=== PATIENT | female | born 1970 | race Caucasian/White ===

== ENCOUNTER 2022-05-11 20:07 | Inpatient (IN) | payer OTHER ==
[2022-05-11 22:28] VITALS: BMI 18.1
[2022-05-11] MEDS ORDERED: POLYETHYLENE GLYCOL (HEALTHYLAX) 3350 17 GM PACKET PO PRN (23:57)
[2022-05-11] MEDS ORDERED: LOPERAMIDE HCL 2 MG CAPSULE PO PRN (23:57)
[2022-05-11] MEDS ORDERED: P-EPHED 60MG/TRIPROLIDI 2.5MG TABLET PO PRN (23:57)
[2022-05-11] MEDS ORDERED: DICYCLOMINE HCL 10 MG CAPSULE PO PRN (23:57)
[2022-05-11] MEDS ORDERED: guaiFENesin 200 MG/10 ML 10 ML UNIT-DOSE CUPS PO PRN (23:57)
[2022-05-11] MEDS ORDERED: ONDANSETRON *ODT* 4 MG TABLET SL PRN (23:57)
[2022-05-11] MEDS ORDERED: NALOXONE HCL 0.4 MG/ML VIAL IM PRN (23:57)
[2022-05-11] MEDS ORDERED: NALOXONE HCL (KLOXXADO) 8 MG SPRAY NS PRN (23:57)
[2022-05-11] MEDS ORDERED: MELATONIN 5 MG TABLETS PO PRN (23:57)
[2022-05-11] MEDS ORDERED: MAG HYDROX/AL HYDROX/SIMETH 30 ML UNIT-DOSE CUP PO PRN (23:57)
[2022-05-11] MEDS ORDERED: ACETAMINOPHEN 325 MG TABLET (FP) PO PRN (23:57)
[2022-05-11] MEDS ORDERED: BISMUTH SUBSALICYLATE 524 MG/30 ML PO PRN (23:57)
[2022-05-11] MEDS ORDERED: BENZOCAINE/MENTHOL (CHLORASEPTIC ) LOZENGE MM PRN (23:57)
[2022-05-11] MEDS ORDERED: MAGNESIUM HYDROX 2400MG/30ML ORAL SUSPENSION 30 ML CUP PO PRN (23:57)
[2022-05-11] MEDS ORDERED: IBUPROFEN 400 MG TABLET (FP) PO PRN (23:57)
[2022-05-12] MEDS ORDERED: traZODone HCL 50 MG TABLET (FP) PO ONE ×2 (00:04→01:30)
[2022-05-12] MEDS ORDERED: SERTRALINE HCL 50 MG TABLET (FP) PO ONE ×2 (00:04→01:30)
[2022-05-12] MEDS ORDERED: diazePAM 5 MG TABLET PO PRN (00:05)
[2022-05-12] MEDS ORDERED: GABAPENTIN 100 MG CAPSULE PO ONE ×2 (00:05→01:30)
[2022-05-12] MEDS: NICOTINE 10 MG CARTRIDGE (INHALER) IH PRN (01:32)
[2022-05-12] MEDS: IBUPROFEN 600 MG TABLET (FP) PO PRN ×2 (01:33→10:45)
[2022-05-12] MEDS: METHYL SALICYLATE/MENTHOL OINT 30 GM TUBE TP SCH ×3 (01:40→22:34)
[2022-05-12] MEDS: METHOCARBAMOL 500 MG TABLET PO PRN ×2 (10:45→17:34)
[2022-05-12] MEDS: PRENATAL VITAMINS W/ FOLIC ACID TABLET (FP) PO SCH (10:48)
[2022-05-12] MEDS ORDERED: methaDONE HCL 10 MG TABLET (FOR DETOX USE ONLY) PO ONE (11:09)
[2022-05-12] MEDS ORDERED: SERTRALINE HCL 50 MG TABLET (FP) PO SCH (11:15)
[2022-05-12] MEDS: diazePAM 5 MG TABLET PO SCH ×3 (11:34→22:32)
[2022-05-12] MEDS: busPIRone HCL 10 MG TABLET (FP) PO SCH ×2 (12:04→22:31)
[2022-05-12] MEDS: LURASIDONE HCL 40 MG TABLET PO SCH (12:04)
[2022-05-12 12:20] LABS: MCH 27.6 pg (25.7-33.7); MCHC 33.4 g/dl (32.0-36.0); MEAN CELL VOLUME 82.8 fl (80-96); MEAN PLT VOLUME 9.6 fl (7.5-11.1); PLATELET COUNT 170 10^3/uL (134-434); RBC 3.98 M/mm3 (3.60-5.2); RDW 14.4 % (11.6-15.6); WHITE BLOOD COUNT 3.8 K/mm3 (4.0-10.0)
[2022-05-12 12:56] LABS: BLOOD UREA NITROGEN 16.8 mg/dL (7-18); CALCIUM 8.6 mg/dL (8.5-10.1)
[2022-05-12 12:57] LABS: ALBUMIN 3.3 g/dl (3.4-5.0)
[2022-05-12 13:00] LABS: CREATININE 0.6 mg/dL (0.55-1.3)
[2022-05-12 13:01] LABS: BILIRUBIN,TOTAL 0.2 mg/dL (0.2-1)
[2022-05-12] MEDS: PANTOPRAZOLE 40 MG TABLET PO SCH (14:23)
[2022-05-12] MEDS: THIAMINE HCL 100 MG TABLET (FP) PO SCH (22:30)
[2022-05-12] MEDS: SERTRALINE HCL 50 MG TABLET (FP) PO SCH (22:31)
[2022-05-12] MEDS: traZODone HCL 100 MG TABLET (FP) PO SCH (22:31)
[2022-05-13] MEDS: diazePAM 5 MG TABLET PO SCH ×4 (05:41→22:11)
[2022-05-13] MEDS: IBUPROFEN 600 MG TABLET (FP) PO PRN (05:43)
[2022-05-13] MEDS ORDERED: SERTRALINE HCL 50 MG TABLET (FP) PO SCH (10:00)
[2022-05-13] MEDS: busPIRone HCL 10 MG TABLET (FP) PO SCH ×2 (10:18→22:11)
[2022-05-13] MEDS: PRENATAL VITAMINS W/ FOLIC ACID TABLET (FP) PO SCH (10:18)
[2022-05-13] MEDS: METHYL SALICYLATE/MENTHOL OINT 30 GM TUBE TP SCH ×2 (10:18→22:11)
[2022-05-13] MEDS: PANTOPRAZOLE 40 MG TABLET PO SCH (10:19)
[2022-05-13] MEDS: LURASIDONE HCL 40 MG TABLET PO SCH (10:19)
[2022-05-13] MEDS: ACETAMINOPHEN 325 MG TABLET (FP) PO PRN (11:28)
[2022-05-13] MEDS: MELATONIN 5 MG TABLETS PO SCH (22:10)
[2022-05-13] MEDS: SERTRALINE HCL 50 MG TABLET (FP) PO SCH (22:11)
[2022-05-13] MEDS: traZODone HCL 100 MG TABLET (FP) PO SCH (22:11)
[2022-05-13] MEDS: THIAMINE HCL 100 MG TABLET (FP) PO SCH (22:11)
[2022-05-14] MEDS: diazePAM 5 MG TABLET PO SCH ×3 (05:54→22:23)
[2022-05-14] MEDS: METHOCARBAMOL 500 MG TABLET PO PRN (05:55)
[2022-05-14] MEDS: ACETAMINOPHEN 325 MG TABLET (FP) PO PRN ×2 (05:57→22:26)
[2022-05-14] MEDS ORDERED: methaDONE HCL 10 MG TABLET (FOR DETOX USE ONLY) PO ONE (10:00)
[2022-05-14] MEDS: METHYL SALICYLATE/MENTHOL OINT 30 GM TUBE TP SCH ×2 (10:21→22:22)
[2022-05-14] MEDS: IBUPROFEN 600 MG TABLET (FP) PO PRN ×2 (10:23→18:13)
[2022-05-14] MEDS: busPIRone HCL 10 MG TABLET (FP) PO SCH ×2 (10:23→22:22)
[2022-05-14] MEDS: LURASIDONE HCL 40 MG TABLET PO SCH (10:24)
[2022-05-14] MEDS: PANTOPRAZOLE 40 MG TABLET PO SCH (10:24)
[2022-05-14] MEDS: PRENATAL VITAMINS W/ FOLIC ACID TABLET (FP) PO SCH (10:26)
[2022-05-14] MEDS: MELATONIN 5 MG TABLETS PO SCH (22:22)
[2022-05-14] MEDS: THIAMINE HCL 100 MG TABLET (FP) PO SCH (22:22)
[2022-05-14] MEDS: traZODone HCL 100 MG TABLET (FP) PO SCH (22:22)
[2022-05-14] MEDS: SERTRALINE HCL 50 MG TABLET (FP) PO SCH (22:22)
[2022-05-15] MEDS: diazePAM 5 MG TABLET PO SCH ×2 (05:50→17:24)
[2022-05-15] MEDS: busPIRone HCL 10 MG TABLET (FP) PO SCH ×2 (10:30→22:25)
[2022-05-15] MEDS: METHOCARBAMOL 500 MG TABLET PO PRN ×2 (10:30→22:25)
[2022-05-15] MEDS: METHYL SALICYLATE/MENTHOL OINT 30 GM TUBE TP SCH ×2 (10:30→22:25)
[2022-05-15] MEDS: PRENATAL VITAMINS W/ FOLIC ACID TABLET (FP) PO SCH (10:30)
[2022-05-15] MEDS: LURASIDONE HCL 40 MG TABLET PO SCH (10:30)
[2022-05-15] MEDS: PANTOPRAZOLE 40 MG TABLET PO SCH (10:30)
[2022-05-15] MEDS: NICOTINE 10 MG CARTRIDGE (INHALER) IH PRN (13:50)
[2022-05-15] MEDS: IBUPROFEN 600 MG TABLET (FP) PO PRN ×2 (13:51→22:30)
[2022-05-15] MEDS: hydrOXYzine PAMOATE 25 MG CAPSULE (FP) PO PRN (17:24)
[2022-05-15] MEDS: ACETAMINOPHEN 325 MG TABLET (FP) PO PRN (17:26)
[2022-05-15] MEDS: THIAMINE HCL 100 MG TABLET (FP) PO SCH (22:24)
[2022-05-15] MEDS: MELATONIN 5 MG TABLETS PO SCH (22:24)
[2022-05-15] MEDS: traZODone HCL 100 MG TABLET (FP) PO SCH (22:25)
[2022-05-15] MEDS: SERTRALINE HCL 50 MG TABLET (FP) PO SCH (22:28)
[2022-05-16] MEDS: IBUPROFEN 600 MG TABLET (FP) PO PRN ×3 (05:49→22:37)
[2022-05-16] MEDS ORDERED: diazePAM 5 MG TABLET PO ONE (06:00)
[2022-05-16] MEDS ORDERED: methaDONE HCL 10 MG TABLET (FOR DETOX USE ONLY) PO ONE (10:00)
[2022-05-16] MEDS: METHYL SALICYLATE/MENTHOL OINT 30 GM TUBE TP SCH ×2 (10:31→22:37)
[2022-05-16] MEDS: PANTOPRAZOLE 40 MG TABLET PO SCH (10:32)
[2022-05-16] MEDS: METHOCARBAMOL 500 MG TABLET PO PRN (10:32)
[2022-05-16] MEDS: PRENATAL VITAMINS W/ FOLIC ACID TABLET (FP) PO SCH (10:32)
[2022-05-16] MEDS: busPIRone HCL 10 MG TABLET (FP) PO SCH ×2 (10:32→22:37)
[2022-05-16] MEDS: LURASIDONE HCL 40 MG TABLET PO SCH (10:32)
[2022-05-16] MEDS: hydrOXYzine PAMOATE 25 MG CAPSULE (FP) PO PRN ×2 (10:34→22:36)
[2022-05-16] MEDS: ACETAMINOPHEN 325 MG TABLET (FP) PO PRN (10:35)
[2022-05-16 17:13] VITALS: RESP 16
[2022-05-16] MEDS: THIAMINE HCL 100 MG TABLET (FP) PO SCH (22:36)
[2022-05-16] MEDS: traZODone HCL 100 MG TABLET (FP) PO SCH (22:36)
[2022-05-16] MEDS: SERTRALINE HCL 50 MG TABLET (FP) PO SCH (22:36)
[2022-05-16] MEDS: MELATONIN 5 MG TABLETS PO SCH (22:36)
[2022-05-17] MEDS: IBUPROFEN 600 MG TABLET (FP) PO PRN (05:45)
[2022-05-17] MEDS ORDERED: PANTOPRAZOLE 40 MG TABLET PO SCH (06:00)
[2022-05-17 09:41] VITALS: BP 105/58; PULSE 50; TEMP 96.9
[2022-05-17] MEDS: METHYL SALICYLATE/MENTHOL OINT 30 GM TUBE TP SCH (10:22)
[2022-05-17] MEDS: LURASIDONE HCL 40 MG TABLET PO SCH (10:22)
[2022-05-17] MEDS: busPIRone HCL 10 MG TABLET (FP) PO SCH (10:22)
[2022-05-17] MEDS: PRENATAL VITAMINS W/ FOLIC ACID TABLET (FP) PO SCH (10:22)
[2022-05-17] MEDS: ACETAMINOPHEN 325 MG TABLET (FP) PO PRN (10:25)
== END 2022-05-17 11:31 | disposition home or self-care (01) | DRG 773 ==
LOC: YASAS 20:07 → UNDOADMIN 05-12 00:09 → Y6N 05-12 00:09
PROVIDERS: ADMIT Allergy & Immunology; ATTEND Surgery
PROC: HZ2ZZZZ Detoxification Services for Substance Abuse Treatment (ICD-10-PCS; principal; 2022-05-12)
DX: F11.23 Opioid dependence with withdrawal (principal); F13.20 Sedative, hypnotic or anxiolytic dependence, uncomplicated; F14.20 Cocaine dependence, uncomplicated; F31.81 Bipolar II disorder; F19.280 Other psychoactive substance dependence with psychoactive substance-induced anxiety disorder; F19.282 Other psychoactive substance dependence with psychoactive substance-induced sleep disorder; K21.9 Gastro-esophageal reflux disease without esophagitis; M17.0 Bilateral primary osteoarthritis of knee; R00.1 Bradycardia, unspecified; Z86.19 Personal history of other infectious and parasitic diseases; Z87.891 Personal history of nicotine dependence
CPT/HCPCS: 36415; 80053; 84132; 85027; 86780; 93005; 93010; C9803-CS; G0480; U0003; U0005